=== PATIENT | female | born 1980 | race African-American/Black ===

== ENCOUNTER 2020-02-13 16:19 | Inpatient (IN) | payer OTHER, MEDICARE, MEDICAID ==
[~2020-02-13] VITALS: Ht 170.2 cm; Wt 72.1 kg
[2020-02-13] MEDS ORDERED: SODIUM CHLORIDE 0.9% 1,000 ML IV ONE (18:57)
[2020-02-13] MEDS ORDERED: METHYLPREDNISOLONE SOD SUCC 500 MG in DEXT 5% WATER 100 ML IV ONE (19:00)
[2020-02-13 19:42] LABS: BASOPHILS % 1.3 % (0.0-2.0); HEMATOCRIT. 38.5 % (36.0-48.0); HEMOGLOBIN. 12.8 g/dL (12.0-16.0); LYMPHOCYTES % 32.3 % (20.0-50.0); MEAN CORPUSCULAR HEMOGLOBIN 29.4 pg (28.0-32.0); MEAN CORPUSCULAR VOLUME 88.5 fL (81.0-99.0); MEAN PLATELET VOLUME 10.2 fl (7.4-10.4); MONOCYTES % 11.3 % (2.0-8.0); NEUTROPHILS % 54.1 % (40.0-76.0); PLATELET 181 x1000/uL (130-400); RED BLOOD CELL COUNT 4.35 mill/uL (4.2-5.4); RED CELL DISTRIBUTION WIDTH 15.5 % (11.6-14.6)
[2020-02-13 19:46] LABS: CHLORIDE 110 mEq/L (98-107)
[2020-02-13] MEDS ORDERED: POTASSIUM CHLORIDE 20MEQ/PACKET PO ONE (20:15)
[2020-02-13 21:39] LABS: CLARITY URINE CLEAR (CLEAR); COLOR URINE YELLOW (YELLOW); KETONES URINE TRACE (NEGATIVE); LEUKOCYTE ESTERASE URINE NEGATIVE (NEGATIVE); NITRITE URINE NEGATIVE (NEGATIVE); OCCULT BLOOD URINE 3+ (NEGATIVE); PH URINE 6.5 (4.5-8.0); PROTEIN URINE NEGATIVE (NEGATIVE); SPECIFIC GRAVITY URINE 1.014 (1.005-1.030); UROBILINOGEN URINE 0.2 E.U./dL (0.2-1.0)
[2020-02-13] MEDS ORDERED: ACETAMINOPHEN 325MG TABLET PO PRN (23:30)
[2020-02-13] MEDS ORDERED: CLONIDINE 0.1MG TABLET PO PRN (23:30)
[2020-02-13] MEDS ORDERED: DEXTROSE 50% WATER 50ML SYRINGE IV PRN (23:30)
[2020-02-13] MEDS ORDERED: ONDANSETRON HCL 4MG/2ML INJ IV PRN (23:30)
[2020-02-13] MEDS ORDERED: ZOLPIDEM TARTRATE 5MG TABLET PO PRN (23:30)
[2020-02-13] MEDS ORDERED: DIPHENHYDRAMINE 50MG/ML VIAL IV PRN (23:30)
[2020-02-14] MEDS: SODIUM CHLORIDE 0.9% INJ 3ML FLUSH IVF SCH ×3 (06:27→21:37)
[2020-02-14] MEDS: BLOOD SUGAR DIAGNOSTIC STRIP TEST SCH ×3 (07:50→21:36)
[2020-02-14] MEDS: INSULIN LISPRO 100 UNITS/ML SUBCUT SCH ×3 (07:50→21:00)
[2020-02-14] MEDS ORDERED: METHYLPREDNISOLONE SOD SUCC 125 MG/2 ML VIAL IV SCH (09:00)
[2020-02-14] MEDS: METHYLPREDNISOLONE IV SCH (09:40)
[2020-02-14] MEDS: DEXT 5% IV SCH (09:40)
[2020-02-14] MEDS: WATER IV SCH (09:40)
[2020-02-14] MEDS: CHOLECALCIFEROL (D3) 1000 UNIT TABLET PO SCH (09:45)
[2020-02-14] MEDS: FAMOTIDINE 20MG TABLET PO SCH ×2 (09:45→21:37)
[2020-02-14] MEDS: ACETAMINOPHEN 325MG TABLET PO PRN (16:22)
[2020-02-14 18:00] VITALS: BP 129/99
[2020-02-14 18:21] VITALS: BP 129/99
[2020-02-14 18:33] VITALS: BP 129/99
[2020-02-14 20:00] VITALS: BP 135/95
[2020-02-15] VITALS: BP 129/80
[2020-02-15] MEDS: SODIUM CHLORIDE 0.9% INJ 3ML FLUSH IVF SCH ×3 (06:00→21:30)
[2020-02-15] MEDS: INSULIN LISPRO 100 UNITS/ML SUBCUT SCH ×5 (07:29→21:30)
[2020-02-15] MEDS: BLOOD SUGAR DIAGNOSTIC STRIP TEST SCH ×5 (07:29→21:29)
[2020-02-15 08:00] VITALS: BP 140/77
[2020-02-15] MEDS ORDERED: GADOBENATE DIMEGLUMINE 529 MG/ML 10ML IV ONE (09:25)
[2020-02-15] MEDS: CHOLECALCIFEROL (D3) 1000 UNIT TABLET PO SCH (10:59)
[2020-02-15] MEDS: METHYLPREDNISOLONE IV SCH (11:00)
[2020-02-15] MEDS: FAMOTIDINE 20MG TABLET PO SCH ×2 (11:00→20:36)
[2020-02-15] MEDS: DEXT 5% IV SCH (11:00)
[2020-02-15] MEDS: WATER IV SCH (11:00)
[2020-02-15 12:00] VITALS: BP 135/88
[2020-02-15] MEDS: ACETAMINOPHEN 325MG TABLET PO PRN (12:22)
[2020-02-15 16:00] VITALS: BP 143/84
[2020-02-15 20:00] VITALS: BP 130/91
[2020-02-15] MEDS: ALPRAZOLAM 0.5 MG TABLET PO PRN (22:52)
[2020-02-16] VITALS: BP 141/76
[2020-02-16 04:00] VITALS: BP 131/77
[2020-02-16] MEDS: SODIUM CHLORIDE 0.9% INJ 3ML FLUSH IVF SCH ×3 (06:07→21:21)
[2020-02-16] MEDS: BLOOD SUGAR DIAGNOSTIC STRIP TEST SCH ×4 (06:27→21:13)
[2020-02-16] MEDS: INSULIN LISPRO 100 UNITS/ML SUBCUT SCH ×4 (06:28→23:08)
[2020-02-16 08:00] VITALS: BP 135/86
[2020-02-16] MEDS: CHOLECALCIFEROL (D3) 1000 UNIT TABLET PO SCH (09:03)
[2020-02-16] MEDS: FAMOTIDINE 20MG TABLET PO SCH ×2 (09:03→21:14)
[2020-02-16] MEDS: METHYLPREDNISOLONE IV SCH (10:38)
[2020-02-16] MEDS: DEXT 5% IV SCH (10:38)
[2020-02-16] MEDS: WATER IV SCH (10:38)
[2020-02-16 12:00] VITALS: BP 135/80
[2020-02-16 16:00] VITALS: BP 139/86
[2020-02-16] MEDS: ACETAMINOPHEN 325MG TABLET PO PRN (16:40)
[2020-02-16 20:00] VITALS: BP 137/94
[2020-02-16] MEDS: ALPRAZOLAM 0.5 MG TABLET PO PRN (23:39)
[2020-02-17] VITALS: BP 157/82
[2020-02-17 04:00] VITALS: BP 158/94
[2020-02-17] MEDS: BLOOD SUGAR DIAGNOSTIC STRIP TEST SCH ×3 (07:04→17:29)
[2020-02-17] MEDS: INSULIN LISPRO 100 UNITS/ML SUBCUT SCH ×3 (07:04→17:29)
[2020-02-17] MEDS: SODIUM CHLORIDE 0.9% INJ 3ML FLUSH IVF SCH ×2 (07:05→13:53)
[2020-02-17 08:00] VITALS: BP 149/94
[2020-02-17] MEDS ORDERED: DEXT 5% IV SCH (09:00)
[2020-02-17] MEDS ORDERED: WATER IV SCH (09:00)
[2020-02-17] MEDS ORDERED: METHYLPREDNISOLONE SOD IV SCH (09:00)
[2020-02-17] MEDS: FAMOTIDINE 20MG TABLET PO SCH (09:57)
[2020-02-17] MEDS: CHOLECALCIFEROL (D3) 1000 UNIT TABLET PO SCH (09:57)
[2020-02-17 11:37] VITALS: BP 139/84
[2020-02-17 16:00] VITALS: BP 144/96
[2020-02-17 16:34] VITALS: BP 132/96
== END 2020-02-17 18:20 | disposition home or self-care (01) | DRG 59 ==
LOC: ER 16:19 → MICUSO 20:03 → 6EST 02-14 18:02
PROVIDERS: ADMIT Internal Medicine; ATTEND Internal Medicine
DX: G35 Multiple sclerosis (principal); E46 Unspecified protein-calorie malnutrition; E87.6 Hypokalemia; D64.9 Anemia, unspecified; G43.909 Migraine, unspecified, not intractable, without status migrainosus; F41.9 Anxiety disorder, unspecified; H53.8 Other visual disturbances; R73.9 Hyperglycemia, unspecified; R74.0 Nonspecific elevation of levels of transaminase and lactic acid dehydrogenase [LDH]; Z83.3 Family history of diabetes mellitus; Z79.899 Other long term (current) drug therapy; Z68.24 Body mass index [BMI] 24.0-24.9, adult
CPT/HCPCS: 36415; 70553; 71045; 80053; 81003; 82962; 85025; 93005; 96365; 97116; 97162; 97166; 99291; A9577; J1815; J2930; J7030; J7060